=== PATIENT | male | born 1970 | race Caucasian/White ===

== ENCOUNTER 2016-12-12 12:17 | Emergency (ER) | payer SELFPAY ==
[~2016-12-12] VITALS: Ht 165.1 cm; Wt 97.0 kg
[2016-12-12 12:45] LABS: BASOPHILS % (AUTO) 0.5 % (0.0-2.0); EOSINOPHILS % (AUTO) 2.6 % (1.0-6.0); HEMATOCRIT 46.4 % (41-53); HEMOGLOBIN 15.1 g/dL (13.5-17.5); LYMPHOCYTES # (AUTO) 1.8 K/uL (1.0-4.8); LYMPHOCYTES % (AUTO) 22.3 % (22.0-44.0); MEAN CORPUSCULAR HEMOGLOBIN 28.5 pg (26.0-34.0); MEAN CORPUSCULAR HGB CONC 32.6 G/dL (31.0-37.0); MEAN CORPUSCULAR VOLUME 87 fL (80-100); MONOCYTES # (AUTO) 0.6 K/uL (0.1-1.0); MONOCYTES % (AUTO) 6.9 % (2.0-9.0); NEUTROPHILS # (AUTO) 5.4 K/uL (1.8-7.7); NEUTROPHILS % (AUTO) 67.7 % (40.0-70.0); PLATELET COUNT (AUTO) 131 K/uL (150-450); RED CELL DISTRIBUTION WIDTH 14.8 % (11.5-14.5)
[2016-12-12] MEDS ORDERED: SERT50TA12 PO (12:46)
[2016-12-12] MEDS ORDERED: QUET25TA PO (12:46)
[2016-12-12 13:03] LABS: ANION GAP 7 mmol/L (8-16); CALCIUM, TOTAL 8.8 mg/dL (8.8-10.5); CARBON DIOXIDE 30 mmol/L (22-29); CHLORIDE 100 mmol/L (98-107); CREATININE 0.93 mg/dL (0.60-1.30); GLOMERULAR FILTR. RATE CALC > 60 mL/min (>60); POTASSIUM 4.2 mmol/L (3.5-5.1); SODIUM SERUM 137 mmol/L (136-145); UREA NITROGEN, BLOOD 14 mg/dL (7-18)
[2016-12-12 13:09] LABS: ALANINE AMINOTRANSFERASE 40 U/L (12-78); ALBUMIN 3.9 g/dL (3.4-5.0); ASPARTATE AMINOTRANSFERASE 37 U/L (15-37); BILIRUBIN,TOTAL 0.7 mg/dL (0.1-1.0); TOTAL PROTEIN, SERUM 7.8 g/dL (6.4-8.2)
[2016-12-12 15:24] VITALS: BP 138/77
== END 2016-12-12 15:54 | disposition home or self-care (01) ==
LOC: EEVIPCON 12:18 → EMS 12:18
DX: F43.20 Adjustment disorder, unspecified (principal); F15.10 Other stimulant abuse, uncomplicated; Z87.820 Personal history of traumatic brain injury; R45.4 Irritability and anger
CPT/HCPCS: 36415; 80053; 80307; 85025; 99285; G0480

== ENCOUNTER 2017-03-15 01:24 | Inpatient (IN) | payer SELFPAY ==
[~2017-03-15] VITALS: Ht 165.1 cm; Wt 93.2 kg
[~2017-03-15 01:24] MED LIST: QUET25TA PO; SERT50TA12 PO
[2017-03-15 02:01] LABS: BASOPHILS # (AUTO) 0.02 K/uL (0.00-0.20); BASOPHILS % (AUTO) 0.3 % (0.0-2.0); EOSINOPHILS # (AUTO) 0.05 K/uL (0.00-0.70); EOSINOPHILS % (AUTO) 0.64 % (1.0-6.0); HEMATOCRIT 44.8 % (41-53); HEMOGLOBIN 14.8 g/dL (13.5-17.5); LYMPHOCYTES # (AUTO) 1.5 K/uL (1.0-4.8); LYMPHOCYTES % (AUTO) 18.8 % (22.0-44.0); MEAN CORPUSCULAR HEMOGLOBIN 28.4 pg (26.0-34.0); MEAN CORPUSCULAR HGB CONC 33.1 G/dL (31.0-37.0); MEAN CORPUSCULAR VOLUME 86 fL (80-100); MONOCYTES # (AUTO) 0.4 K/uL (0.1-1.0); MONOCYTES % (AUTO) 4.8 % (2.0-9.0); NEUTROPHILS # (AUTO) 6.1 K/uL (1.8-7.7); NEUTROPHILS % (AUTO) 75.5 % (40.0-70.0); PLATELET COUNT (AUTO) 118 K/uL (150-450); RED BLOOD CELL COUNT(AUTO) 5.22 MIL/uL (4.50-5.90); WHITE BLOOD COUNT (AUTO) 8.1 K/uL (4.5-11.0)
[2017-03-15 02:15] LABS: ANION GAP 9 mmol/L (8-16); CALCIUM, TOTAL 8.5 mg/dL (8.8-10.5); CARBON DIOXIDE 27 mmol/L (22-29); CHLORIDE 105 mmol/L (98-107); CREATININE 0.88 mg/dL (0.60-1.30); GLOMERULAR FILTR. RATE CALC > 60 mL/min (>60); POTASSIUM 4.1 mmol/L (3.5-5.1); SODIUM SERUM 141 mmol/L (136-145); UREA NITROGEN, BLOOD 10 mg/dL (7-18)
[2017-03-15 02:20] LABS: ALANINE AMINOTRANSFERASE 33 U/L (12-78); ALBUMIN 4.2 g/dL (3.4-5.0); ASPARTATE AMINOTRANSFERASE 36 U/L (15-37); BILIRUBIN,TOTAL 0.5 mg/dL (0.1-1.0); TOTAL PROTEIN, SERUM 8.6 g/dL (6.4-8.2)
[2017-03-15] MEDS ORDERED: ZOLPIDEM TARTRATE 10 MG TABLET PO PRN (02:30)
[2017-03-15 04:01] LABS: APPEARANCE,URINE CLEAR (CLEAR); GLUCOSE, URINE (UA) NEGATIVE (NEGATIVE); KETONES,URINE NEGATIVE (NEGATIVE); LEUKOCYTE ESTERASE ,URINE NEGATIVE (NEGATIVE); OCCULT BLOOD,URINE NEGATIVE (NEGATIVE); PROTEIN,URINE NEGATIVE (NEGATIVE)
[2017-03-15 04:03] LABS: ADD UA MICROSCOPIC NO
[2017-03-15 05:12] VITALS: BP 136/69
[2017-03-15 08:30] VITALS: BP 126/68
[2017-03-15] MEDS ORDERED: HALOPERIDOL LACTATE 5 MG/ML VIAL IM ONE (08:45)
[2017-03-15] MEDS ORDERED: DiphenhydrAMINE HCL 50 MG/ML VIAL IM ONE (08:45)
[2017-03-15] MEDS ORDERED: LORazepam 2 MG/ML VIAL IM ONE (08:45)
[2017-03-15 09:40] VITALS: BP 146/76
[2017-03-15 16:00] VITALS: BP 137/88
[2017-03-15] MEDS ORDERED: QUEtiapine FUMARATE 200 MG TABLET PO SCH (21:00)
[2017-03-16 06:57] VITALS: BP 114/71
[2017-03-16 08:02] VITALS: BP 133/77
[2017-03-16 08:11] VITALS: BP 129/82
[2017-03-16] MEDS: HALOPERIDOL 5 MG TABLET PO PRN ×2 (08:28→16:43)
[2017-03-16] MEDS: LORazepam 2 MG TABLET PO PRN ×2 (08:28→16:43)
[2017-03-16 08:45] LABS: CHOL/HDL RATIO 2.8 (4.2-7.3)
[2017-03-16 16:00] VITALS: BP 127/79
[2017-03-17 06:15] VITALS: BP 124/76
[2017-03-17 08:43] VITALS: BP 124/60
[2017-03-17] MEDS ORDERED: QUET200T PO (08:58)
[2017-03-17] MEDS: LORazepam 2 MG TABLET PO PRN (09:11)
[2017-03-17] MEDS: QUEtiapine FUMARATE 200 MG TABLET PO SCH ×2 (09:12→17:16)
[2017-03-17 16:37] VITALS: BP 117/78
== END 2017-03-17 20:50 | disposition home or self-care (01) | DRG 885 ==
LOC: EMS 01:24 → B2S 03:01 → B3A 09:30
PROVIDERS: ADMIT Psychiatry & Neurology Psychiatry; ATTEND Psychiatry & Neurology Psychiatry
DX: F20.0 Paranoid schizophrenia (principal); R45.851 Suicidal ideations; F29 Unspecified psychosis not due to a substance or known physiological condition; F10.129 Alcohol abuse with intoxication, unspecified; Y90.7 Blood alcohol level of 200-239 mg/100 ml; Z87.820 Personal history of traumatic brain injury; Z79.899 Other long term (current) drug therapy
CPT/HCPCS: 99285; G0480; J1200; J1630; J2060